=== PATIENT | male | born 1990 | race Caucasian/White ===

== ENCOUNTER → 2019-03-25 15:42 | Outpatient (BNVA) | payer OTHER, SELFPAY | PROVIDERS: PCP Emergency Medicine Emergency Medical Services; Referring Provider Emergency Medicine Emergency Medical Services; Visit Provider Specialist | DX: M79.641 Pain in right hand (principal) | CPT/HCPCS: 73130 ==

== ENCOUNTER 2019-04-14 05:58 | Day surgery (SDC) | payer OTHER, SELFPAY ==
[2019-04-13 18:26] VITALS: BMI 30.3
[2019-04-14 06:11] VITALS: BP 144/77; PULSE 82; RESP 18; TEMP 36.2; O2SAT 98
--- NOTE | 2019-04-14 06:25 | ANES.PREANE2 ---
Pre-Anesthetic Assessment Pre-Anesthetic Assessment: Height/Weight: Height 1.68 m Weight 85.275 kg Temp Pulse Resp BP Pulse Ox 97.2 F L 82 18 144/77 98 04/14/19 06:11 04/14/19 06:11 04/14/19 06:11 04/14/19 06:11 04/14/19 06:11 Preop Diagnosis: Right hand long and ring finger triggering Proposed Procedure: Operation Date: 04/14/19 07:00 Proposed Procedures p Trigger Finger Release [id number] M65.341(Right) - Haleigh Green MD Familial anesthetic complications: None Was Beta Hola taken within 24 hours: N/A Last intake: Intake Last Liquid Date 04/13/19 Last Liquid Time 22:00 Last Solid Date 04/13/19 Last Solid Time 22:00 Social: Social History: No alcohol and No tobacco Exam: Pre-Anes Outpt Exam: alert, oriented x 3, clear to auscultation bilaterally and regular rate & rhythm Airway: Cervical ROM: WNL MP: 2 Dentition: Full Pulmonary: Pulmonary: Sleep apnea (noncompliant with CPAP) CV/HEM: CV/HEM: None reported : : None reported Hepatic: Hepatic: None reported GI: GI: None reported Metabolic: Metabolic: None reported Musc/skel: Musc/skel: None reported Neuropsych: Neuropsych: None reported Anesthetic Plan: ASA status: II Anesthesia: General Risk of > 500 ml blood loss (7ml/kg in children): No PFSH Anesthesia PFSH: Social History Smoking and tobacco status: former smoker Alcohol intake: never Data Anesthesia Cardiac Studies: No Data to Display
[2019-04-14] MEDS: sodium chloride 0.9% 1,000 ML 30 ML IV (06:35)
--- NOTE | 2019-04-14 06:56 | PM.HPUD ---
H&P update H&P Update: DATE OF SURGERY/PROCEDURE: 04/14/19 DATE H&P PERFORMED: 03/25/19 H&P UPDATE INFORMATION: No changes to prior documentation and H&P is in [facility] EMR on date indicated PREOP DIAGNOSIS: Right long and ring finger triggering PLANNED PROCEDURE: Operation Date: 04/14/19 07:00 Proposed Procedures Trigger Finger Release long and ring fingers [id number] M65.341(Right) - Haleigh Green MD Full H&P Medications/Allergies: Current Medications: Current Medications Generic Name Dose Route Start Last Admin Trade Name Freq PRN Reason Stop Dose Admin Sodium Chloride 1,000 mls @ 30 ml s/hr 04/14/19 06:00 04/14/19 06:35 Sodium Chloride 0.9% IV 04/15/19 05:59 30 mls/hr .Q24H THOM Administration Perinent History: Family History: Family History (Updated 03/25/19 @ 15:56 by Vianney Mcneal LPN) Mother Cancer Social History: Social History Smoking and tobacco status: former smoker Alcohol intake: never
--- NOTE | 2019-04-14 07:59 | P.OP_ITS ---
Operative Report Date of procedure: April 14, 2019 Pre-op Diagnosis: Right long and ring finger triggering Post-op diagnosis: same Procedure Done: Release right ring long and trigger fingers Pathology: none sent Surgeon: Haleigh Green Anesthesia: MAC (With [place] block) Estimated blood loss (mL): 5 Tourniquet time (min): 38 IV fluids (mL): 400 Complications: None Disposition: same day Brief History: This 28-year-old gentleman presented to my office with complaints of triggering of the long and ring fingers of the right hand. He was having difficulties with his activities of daily living secondary to this triggering, and it was quite painful for him. After discussion, he elected to proceed with trigger finger release. Procedure: The patient was brought to the operating theater. He was placed on the operating room table. A Irene block with MAC was administered without difficulty. Patient tolerated it well. Ancef 2 g was administered. A tourniquet was placed high on the arm and was elevated for the Irene block. This followed exsanguination of the arm. Tourniquet time was 38 minutes. Surgical pause was performed prior to commencement of the surgical procedure. At the time of the surgical pause we identified the site and side of surgery. We also identified the patient's identity and appropriate administration of IV antibiotics. Following the surgical pause, an incision was made along the distal palmar crease beneath the long and ring fingers along the metacarpal phalangeal crease. Dissection continued through the skin to the subcutaneous tissues using a scalpel. Blunt dissection was then utilized to spread soft tissues and allow access to the A1 eddie. Each A1 eddie was identified. It was then incised longitudinally and sharply using a knife. This was accomplished without difficulty and atraumatically. Once the A1 pulleys were released, tendons were brought up out of the wound and evaluated. There were no gross masses on the tendons. Tendons were returned to normal position. We then irrigated the wound and subsequently closed it with 3-0 nylon with an interrupted mattress type suture. Following closure of the wound, the wound was injected with bupivacaine into the subcutaneous tissues as a local anesthetic. Sterile dressing was then placed consisting of TElfa, Tegaderm, fluffed fluffs sterile soft roll, and an Surjit wrap. The patient was returned to recovery in satisfactory condition. He will be discharged home to follow-up with me in the office. There were no complications and no specimens.
[2019-04-14 08:02] VITALS: BP 146/90; PULSE 76; RESP 16; TEMP 36.2; O2SAT 94
[2019-04-14 08:16] VITALS: BP 140/86; PULSE 74; RESP 18; O2SAT 96
== END 2019-04-14 08:30 | disposition home or self-care (01) ==
PROVIDERS: PCP Emergency Medicine Emergency Medical Services; Visit Provider Specialist
PROC: (CPT 26055; principal; 2019-04-14 07:00)
DX: M65.331 Trigger finger, right middle finger (principal); M65.341 Trigger finger, right ring finger; Z87.891 Personal history of nicotine dependence; G47.30 Sleep apnea, unspecified
CPT/HCPCS: 26055 ×2; 12345; J0690; J2001; J2704; J3010; J3490; J7030

== ENCOUNTER 2020-06-05 11:49 | Outpatient (CLI) | payer OTHER, SELFPAY ==
--- NOTE | 2020-06-05 12:19 | XRR_ITS ---
PROCEDURE INFORMATION: Exam: XR Left Scapula Exam date and time: 06/05/2020 12:19 PM Age: 29 years old Clinical indication: Injury or trauma; Fall; Blunt trauma (contusions or hematomas); Shoulder; Left; Injury details: Scapula; Additional info: Pain and trauma TECHNIQUE: Imaging protocol: XR Left scapula, complete. COMPARISON: No relevant prior studies available. FINDINGS: Bones/joints: Normal. Soft tissues: Normal. XR/[place] [id number] IMPRESSION: No acute findings.
--- NOTE | 2020-06-05 12:19 | XRR_ITS ---
PROCEDURE INFORMATION: Exam: XR Left Ribs Exam date and time: 06/05/2020 12:19 PM Age: 29 years old Clinical indication: Injury or trauma; Other: [employer] [place]; Rib area, left side; Blunt trauma; Additional info: Pain and trauma TECHNIQUE: Imaging protocol: XR Left ribs. Views: 2 views. COMPARISON: No relevant prior studies available. FINDINGS: Bones/joints: Normal. Soft tissues: Normal. XR/XR ribs LT 2V* [id number] IMPRESSION: No acute findings. No rib fractures are seen.
--- NOTE | 2020-06-05 12:19 | XRR_ITS ---
PROCEDURE INFORMATION: Exam: XR Cervical Spine Exam date and time: 06/05/2020 12:19 PM Age: 29 years old Clinical indication: Injury or trauma; Fall; Blunt trauma; Additional info: Pain and trauma TECHNIQUE: Imaging protocol: XR of the cervical spine. Views: 2 or 3 views. COMPARISON: No relevant prior studies available. FINDINGS: Bones/joints: Normal. No acute fracture. Normal alignment. Soft tissues: Unremarkable. XR/XR cervical spine 3V* [id number] IMPRESSION: No acute findings.
== END 2020-06-05 11:50 | disposition home or self-care (01) ==
LOC: RAD 11:51
PROVIDERS: PCP Emergency Medicine Emergency Medical Services; Visit Provider Nurse Practitioner
DX: M54.2 Cervicalgia (principal); M54.9 Dorsalgia, unspecified; M25.512 Pain in left shoulder; R07.81 Pleurodynia
CPT/HCPCS: 71100; 72040; 73010

== ENCOUNTER 2021-06-01 09:51 | Emergency (ER) | payer OTHER, SELFPAY ==
[2021-06-01 10:04] VITALS: BP 129/81; PULSE 82; RESP 18; TEMP 36.9; O2SAT 97; BMI 29.0
--- NOTE | 2021-06-01 10:19 | XR_ITS ---
WS: [id number] K[facility], AP view, 06/01/2021 Clinical Data: constipation Comparison: None. Findings: No abnormal intraabdominal masses or calcifications are seen. There is no dilatated small bowel or ev idence of obstruction. There is a large amount of fecal material throughout the colon. The bladder is partly full. XR/XR KUB portable [id number] Impression: Large amount of fecal material in the colon.
--- NOTE | 2021-06-01 11:05 | ED_ITS ---
HPI - General Adult General: Chief complaint: General Medical Stated complaint: ABD pain with Diarrhea Time Seen by Provider: 06/01/21 11:02 History of Present Illness: Patient presents with bowels not working like they usually do. He says normally has bowel movement daily. But since Saturday has been every other day. Has had diarrhea x1 had a low-grade fever 100.3 last night. Whole family was sick with stomach flu last week. Patient has no abdominal pain. Associated symptoms: Deny chest pain, dyspnea, headache(s), nausea, rash or vomiting Review of Systems Const: Denies: fever(s), chills or body aches Eyes: Denies: eye discomfort ENMT: Denies: throat pain Card: Denies: chest pain Resp: Denies: dyspnea GI: Reports: constipation and change in bowel habits; Denies: abdominal pain, nausea or vomiting Skin/Breast: Denies: rash Neuro: Denies: headache(s) Psych: Denies: depression or suicidal ideation PFS ED PFSH: Family History Mother Cancer Social History Smoking and tobacco status: former smoker Alcohol intake: never Physical Exam Const: COMMON NORMALS: no acute distress, patient oriented x3 and alert HENMT: COMMON NORMALS: normocephalic and external ears normal HEAD & SCALP: normocephalic EXTERNAL EAR: Yes external ears normal Eye: COMMON NORMALS: EOMs intact bilaterally Neck/C-Spine: COMMON NORMALS: no JVD Resp: COMMON NORMALS: normal respiratory effort and No use of accessory muscles Cardio: COMMON NORMALS: no JVD GI: INSPECTION: Yes normal to inspection Extremity: COMMON NORMALS: normal to inspection and full ROM Neuro: COMMON NORMALS: patient oriented x3 SENSORIUM/ORIENTATION: Yes alert Psych: COMMON NORMALS: mental status grossly normal Skin: COMMON NORMALS: no rashes or lesions noted GENERAL SKIN EXAM: no r ashes or lesions noted Course Vital Signs: Vital signs: Vital Signs Temperature 98.4 F 06/01/21 10:04 Pulse Rate 82 06/01/21 10:04 Respiratory Rate 18 06/01/21 10:04 Blood Pressure 129/81 06/01/21 10:04 Pulse Oximetry 97 06/01/21 10:04 MDM - General Adult Medical Decision Making Clinical exam and radiology study reveals constipation. CBC was normal. Lab Data : 06/01/21 11:20 Radiology Impressions KUB X-Ray 06/01/21 10:19 Impression: Large amount of fecal material in the colon. Laboratory Results WBC 4.6 10^3/uL (4.0-10.0) 06/01/21 11:20 RBC 4.52 10^6/uL (4.1-5.3) 06/01/21 11:20 Hgb 13.4 g/dL (11.7-16.6) 06/01/21 11:20 Hct 39.5 % (42.0-52.0) L 06/01/21 11:20 MCV 87.4 fl (80-94) 06/01/21 11:20 MCH 29.6 pg (28.0-34.0) 06/01/21 11:20 MCHC 33.9 g/dL (30.0-36.0) 06/01/21 11:20 RDW 12.3 % (12.1-15.1) 06/01/21 11:20 Plt Count 208 10^3/cmm (130-400) 06/01/21 11:20 MPV 10.9 fL (7.4-10.4) H 06/01/21 11:20 Neut % (Auto) 43.9 % 06/01/21 11:20 Lymph % (Auto) 43.4 % 06/01/21 11:20 [place] % (Auto) 9.1 % 06/01/21 11:20 Eos % (Auto) 3.0 % 06/01/21 11:20 Baso % (Auto) 0.4 % 06/01/21 11:20 Neut # (Auto) 2.03 10^3/uL (1.8-7.7) 06/01/21 11:20 Lymph # (Auto) 2.0 10^3/uL (0.8-4.8) 06/01/21 11:20 [place] # (Auto) 0.4 10^3/uL (0.2-0.9) 06/01/21 11:20 Eos # (Auto) 0.1 10^3/uL (0.0-0.8) 06/01/21 11:20 Baso # (Auto) 0.0 10^3/uL (0.0-0.1) 06/01/21 11:20 Nucleated RBC % (auto) 0 % 06/01/21 11:20 Nucleated RBCs # 0.0 /100WBC 06/01/21 11:20 Discharge Plan Discharge Patient Disposition: Home Clinical Impression: Constipated Condition: Stable Prescriptions: New magnesium citrate Solution 296 ml PO DAILY PRN (Reason: constipation) Qty: 296 0RF No Action naproxen 375 mg tablet 375 mg PO BID 7 Days Qty: 14 0RF baclofen 5 mg tablet 5 mg PO BID PRN (Reason: pain) Qty: 10 0RF doxepin 25 mg capsule 25 mg PO BID 0RF prazosin 5 mg capsule 5 mg PO ONCE 0RF duloxetine [Cymbalta] 60 mg capsule,delayed release(DR/EC) 60 mg PO DAILY 0RF bupropion HCl 300 mg tablet extended release 24 hr 300 mg PO QAM 0RF cholecalciferol (vitamin D3) 1,000 unit capsule 1,000 unit PO ONCE 0RF Discharge Orders: Discharge ED (Routine); Ordered 06/01/21 Ordered By: Jasbir Hernandez Referrals: Billy Albrecht DO [Primary Care Provider] - Discharge Diet: As Directed Discharge Activity: Resume usual activity Patient Instructions: Constipation (ED) Activity Restrictions/Additional Instructions: Follow-up with medical provider as directed. Take medications as prescribed. Return to the ER or your medical provider if condition worsens. Please read and understand discharge instructions. If any questions ask please. Increase fluid, fiber and vegetables in diet. Coding Level of Care Code ED Operations Scheduler for Chg Fwd Exam Comprehensive
[2021-06-01 11:34] LABS: Basophils % 0.4 %; Eosinophils # 0.1 10^3/uL (0.0-0.8); Hematocrit 39.5 % (42.0-52.0); Hemoglobin 13.4 g/dL (11.7-16.6); Lymphocytes % 43.4 %; Mean Corpuscular HGB Conc 33.9 g/dL (30.0-36.0); Mean Corpuscular Hemoglobin 29.6 pg (28.0-34.0); Mean Corpuscular Volume 87.4 fl (80-94); Mean Platelet Volume 10.9 fL (7.4-10.4); Monocytes # 0.4 10^3/uL (0.2-0.9); Monocytes % 9.1 %; Neutrophils # 2.03 10^3/uL (1.8-7.7); Neutrophils % 43.9 %; Nucleated Red Blood Cells % 0 %; Platelet Count 208 10^3/cmm (130-400); Red Blood Count 4.52 10^6/uL (4.1-5.3); Red Cell Distribution Width 12.3 % (12.1-15.1); White Blood Count 4.6 10^3/uL (4.0-10.0)
[2021-06-01 11:44] VITALS: BP 119/76; PULSE 71; RESP 14; TEMP 36.4; O2SAT 98
[2021-06-01 11:46] VITALS: BP 119/76; PULSE 71; RESP 14; TEMP 36.4; O2SAT 98
== END 2021-06-01 11:45 | disposition home or self-care (01) ==
PROVIDERS: Emergency Provider Nurse Practitioner Family; PCP Emergency Medicine Emergency Medical Services
DX: K59.00 Constipation, unspecified (principal)
CPT/HCPCS: 74018; 85025; 99282

== ENCOUNTER → 2021-09-21 11:13 | Outpatient (BNVA) | payer SELFPAY | PROVIDERS: PCP Emergency Medicine Emergency Medical Services; Visit Provider Family Medicine | DX: B34.9 Viral infection, unspecified (principal); J12.9 Viral pneumonia, unspecified; R05.9 Cough, unspecified; R50.9 Fever, unspecified | CPT/HCPCS: 71046; 87635 ==

== ENCOUNTER 2022-06-05 11:49 | Emergency (ER) | payer OTHER, SELFPAY ==
[2022-06-05 12:12] VITALS: BP 102/69; PULSE 128; RESP 18; TEMP 36.8; O2SAT 98; BMI 32.3
[2022-06-05 12:22] VITALS: O2SAT 98
[2022-06-05 14:07] LABS: Basophils % 0.2 %; Eosinophils % 0.5 %; Hemoglobin 16.3 g/dL (11.7-16.6); Lymphocytes # 0.5 10^3/uL (0.8-4.8); Lymphocytes % 5.3 %; Mean Corpuscular Hemoglobin 29.4 pg (28.0-34.0); Mean Corpuscular Volume 86.6 fl (80-94); Mean Platelet Volume 10.3 fL (7.4-10.4); Monocytes # 0.5 10^3/uL (0.2-0.9); Monocytes % 5.8 %; Neutrophils % 87.9 %; Nucleated Red Blood Cells % 0 %; Platelet Count 187 10^3/cmm (130-400); Red Blood Count 5.54 10^6/uL (4.1-5.3); Red Cell Distribution Width 12.2 % (12.1-15.1); White Blood Count 8.8 10^3/uL (4.0-10.0)
[2022-06-05 14:28] LABS: Alanine Aminotransferase 23 U/L (0-41); Albumin Level 4.6 g/dL (3.5-5.2); Alkaline Phosphatase 66 U/L (40-130); Anion Gap 18.5 (5-19); Aspartate Amino Transferase 20 U/L (0-40); Blood Urea Nitrogen 17 mg/dL (6-20); Calcium 9.4 mg/dL (8.5-10.5); Carbon Dioxide 23 mmol/L (22-29); Chloride 95 mmol/L (98-107); Globulin 3.6 g/dL (1.3-4.6); Glomerular Filtration Rate 111.3 mL/min (90-130); Glucose 101 mg/dL (65-115); Lipase 17 U/L (13-60); Osmolality Calculated 276 mOsm/kg (285-295); Potassium 4.5 mmol/L (3.5-5.1); Sodium 132 mmol/L (136-145); Total Bilirubin 0.6 mg/dL (0.15-1.2); Total Protein 8.2 g/dL (6.6-8.7)
--- NOTE | 2022-06-05 14:41 | W.ED.NAVMDI ---
HPI - Nausea/Vomiting/Diarrhea General: Chief complaint: COVID symptoms Stated complaint: n/v/d/ body chills Time Seen by Provider: 06/05/22 14:17 Source: patient Mode of arrival: ambulatory Limitations: no limitations History of Present Illness: Patient is a 31-year-old male presents to ED today with complaint of nausea, vomiting, diarrhea starting at midnight. He denies any poor food exposures. Denies sick contacts. He does report some body aches without fevers. Patient states he had nausea, vomiting, diarrhea last time he had COVID and wants checked for this. No blood in his emesis or stool. Urinary complaints. Denies lightheadedness/dizziness. He is not having any abdominal pain. He has had 3-4 total episodes of vomiting throughout the night. Has not had any further episodes today. States he is holding down fluids fine. MD elicited complaint: nausea, vomiting and diarrhea Onset (ago): hour(s) Description of vomiting: watery Description of diarrhea: watery Associated nausea: Yes Associated abdominal pain: No Location of pain: None Severity: mild Relieving factors: none Associated symtoms: Reports nausea; Denies chest pain, dizziness, dysuria, fatigue, headache(s), malaise, palpitations or syncope Review of Systems Const: Reports: body aches; Denies: fever(s), chills, fatigue or malaise ENMT: Denies: throat pain, odynophagia, nasal discharge, nasal congestion or sinus pain Card: Denies: chest pain, palpitations, irregular heart rhythm, lightheadedness, syncope or pre-syncope Resp: Denies: dyspnea GI: Reports: nausea, vomiting and diarrhea; Denies: abdominal pain, hematemesis, hematochezia or melena : Denies: flank pain, dysuria or hematuria Musc: Denies: neck pain, back pain, extremity pain or joint pain Skin/Breast: Denies: rash Neuro: Denies: headache(s) or dizziness PFS ED PFSH: Family History Mother Cancer Social History Smoking and tobacco status: never smoked Alcohol intake: never Physical Exam Const: COMMON NORMALS: no acute distress, average body habitus, patient oriented x3, no limitations, healthy appearing, alert and well nourished GENERAL APPEARANCE: cooperative ORIENTATION/CONSCIOUSNESS: Yes awake, Yes oriented to person, Yes oriented to place and Yes oriented to time Eye: COMMON NORMALS: no scleral icterus Resp: COMMON NORMALS: normal respiratory effort and clear to auscultation bilaterally AUSCULTATION: clear to auscultation bilaterally Cardio: COMMON NORMALS: regular rhythm RATE: tachycardic RHYTHM: regular rhythm GI: COMMON NORMALS: Normal to inspection, nondistended, normoactive bowel sounds present, Soft to palpation, non-tender, No hepatosplenomegaly present and no masses PALPATION: Yes Soft to palpation and Yes No hepatosplenomegaly present Neuro: COMMON NORMALS: patient oriented x3 SENSORIUM/ORIENTATION: Yes alert, Yes oriented to person, Yes oriented to place and Yes oriented to time Course Vital Signs: Vital signs: Vital Signs Temperature 98.3 F 06/05/22 12:12 Pulse Rate 119 H 06/05/22 14:52 Respiratory Rate 16 06/05/22 14:52 Blood Pressure 116/72 06/05/22 14:52 Pulse Oximetry 96 06/05/22 14:52 Oxygen Delivery Me thod 06/05/22 14:52 MDM - Nausea/Vomiting/Diarrhea Medical Decision Making Patient here for N/V/D starting at midnight. Vomiting already sounds like it is improving. He states he is able to hold down fluids well. He has no abdominal pain. Blood work is unremarkable. 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 PCR obtained and pending. Vital signs are stable apart from some tachycardia which I think is secondary to volume loss/dehydration. Again he is able to hold down oral hydration so recommend he continue this as studies show it is just as effective as IV. Return to ED precautions given. Lab Data 06/05/22 13:55 06/05/22 13:55 Laboratory Results WBC 8.8 10^3/uL (4.0-10.0) 06/05/22 13:55 RBC 5.54 10^6/uL (4.1-5.3) H 06/05/22 13:55 Hgb 16.3 g/dL (11.7-16.6) 06/05/22 13:55 Hct 48.0 % (42.0-52.0) 06/05/22 13:55 MCV 86.6 fl (80-94) 06/05/22 13:55 MCH 29.4 pg (28.0-34.0) 06/05/22 13:55 MCHC 34.0 g/dL (30.0-36.0) 06/05/22 13:55 RDW 12.2 % (12.1-15.1) 06/05/22 13:55 Plt Count 187 10^3/cmm (130-400) 06/05/22 13:55 MPV 10.3 fL (7.4-10.4) 06/05/22 13:55 Neut % (Auto) 87.9 % 06/05/22 13:55 Lymph % (Auto) 5.3 % 06/05/22 13:55 [place] % (Auto) 5.8 % 06/05/22 13:55 Eos % (Auto) 0.5 % 06/05/22 13:55 Baso % (Auto) 0.2 % 06/05/22 13:55 Neut # (Auto) 7.70 10^3/uL (1.8-7.7) 06/05/22 13:55 Lymph # (Auto) 0.5 10^3/uL (0.8-4.8) L 06/05/22 13:55 [place] # (Auto) 0.5 10^3/uL (0.2-0.9) 06/05/22 13:55 Eos # (Auto) 0.0 10^3/uL (0.0-0.8) 06/05/22 13:55 Baso # (Auto) 0.0 10^3/uL (0.0-0.1) 06/05/22 13:55 Nucleated RBC % (auto) 0 % 06/05/22 13:55 Nucleated RBCs # 0.0 /100WBC 06/05/22 13:55 Sodium 132 mmol/L (136-145) L 06/05/22 13:55 Potassium 4.5 mmol/L (3.5-5.1) 06/05/22 13:55 Chloride 95 mmol/L (98-107) L 06/05/22 13:55 Carbon Dioxide 23 mmol/L (22-29) 06/05/22 13:55 Anion Gap 18.5 (5-19) 06/05/22 13:55 BUN 17 mg/dL (6-20) 06/05/22 13:55 Creatinine 0.8 mg/dL (0.7-1.2) 06/05/22 13:55 GFR Calculation 111.3 mL/min (90-130) 06/05/22 13:55 Glucose 101 mg/dL (65-115) 06/05/22 13:55 Calculated Osmolality 276 mOsm/kg (285-295) L 06/05/22 13:55 Calcium 9.4 mg/dL (8.5-10.5) 06/05/22 13:55 Total Bilirubin 0.6 mg/dL (0.15-1.2) 06/05/22 13:55 AST 20 U/L (0-40) 06/05/22 13:55 ALT 23 U/L (0-41) 06/05/22 13:55 Alkaline Phosphatase 66 U/L (40-130) 06/05/22 13:55 Total Protein 8.2 g/dL (6.6-8.7) 06/05/22 13:55 Albumin 4.6 g/dL (3.5-5.2) 06/05/22 13:55 Globulin 3.6 g/dL (1.3-4.6) 06/05/22 13:55 Lipase 17 U/L (13-60) 06/05/22 13:55 Discharge Plan Discharge Patient Disposition: Home Clinical Impression: Gastroenteritis Condition: Stable Prescriptions: New ondansetron 4 mg tablet,disintegrating 4 mg PO Q8H PRN (Reason: nausea and vomiting) Qty: 14 0RF No Action doxepin 25 mg capsule 25 mg PO BID prazosin 5 mg capsule 5 mg PO ONCE duloxetine [Cymbalta] 60 mg capsule,delayed release(DR/EC) 60 mg PO DAILY bupropion HCl 300 mg tablet extended release 24 hr 300 mg PO QAM cholecalciferol (vitamin D3) 1,000 unit capsule 1,000 unit PO ONCE prednisone 20 mg tablet 40 mg PO DAILY 5 Days Qty: 10 0RF albuterol sulfate 90 mcg/actuation HFA aerosol inhaler 1 inh inhalation QID PRN (Reason: shortness of breath or wheezing) Qty: 8.5 0RF magnesium citrate Solution 296 ml PO DAILY PRN (Reason: constipation) Qty: 296 0RF Discharge Orders: Discharge ED (Routine); Ordered 06/05/22 Ordered By: Alisa Vidal Referrals: Billy Albrecht DO [Primary Care Provider] - Patient Instructions: Gastroenteritis (DC), Acute Nausea and Vomiting (DC) Coding Level of Care Code ED 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
[2022-06-05 14:52] VITALS: BP 116/72; PULSE 119; RESP 16; O2SAT 96
[2022-06-05 16:46] LABS: Adenovirus Not Detected (NOT DETECT); Chlamydia Pneumoniae Not Detected (NOT DETECT); Coronavirus 229E,HKU1,NL63,OC4 Not Detected (NOT DETECT); Human Metapneumovirus Not Detected (NOT DETECT); Human Rhinovirus/Enterovirus Not Detected (NOT DETECT); Influenza A Not Detected (NOT DETECT); Influenza A H1 Not Detected (NOT DETECT); Influenza A H1-2009 Not Detected (NOT DETECT); Influenza A H3 Not Detected (NOT DETECT); Influenza B Not Detected (NOT DETECT); Mycoplasma Pneumoniae Not Detected (NOT DETECT); Parainfluenza Virus Type 1 Not Detected (NOT DETECT); Parainfluenza Virus Type 2 Not Detected (NOT DETECT); Parainfluenza Virus Type 3 Not Detected (NOT DETECT); Parainfluenza Virus Type 4 Not Detected (NOT DETECT); Respiratory Syncytial Virus A Not Detected (NOT DETECT); Respiratory Syncytial Virus B Not Detected (NOT DETECT); SARS-COV-2 Not Detected (NOT DETECT)
== END 2022-06-05 15:13 | disposition home or self-care (01) ==
PROVIDERS: Emergency Provider Physician Assistant; PCP Emergency Medicine Emergency Medical Services
DX: K52.9 Noninfective gastroenteritis and colitis, unspecified (principal); Z20.822 Contact with and (suspected) exposure to COVID-19
CPT/HCPCS: 36415; 80053; 83690; 85025; 87635; 99283

== ENCOUNTER 2022-12-25 12:10 | Emergency (ER) | payer OTHER, SELFPAY ==
[2022-12-25 12:11] VITALS: BP 139/91; PULSE 97; RESP 17; TEMP 37.1; O2SAT 98; BMI 30.7
--- NOTE | 2022-12-25 12:22 | W.ED.ABDPA2 ---
HPI - Abdominal Pain General: Chief Complaint: Abdominal Pain Stated Complaint: abd pain Time Seen by Provider: 12/25/22 12:18 Source: patient Mode of arrival: ambulatory History of Present Illness: 32-year-old male presents emergency room with supraumbilical abdominal discomfort. Constant in nature. Began yesterday has persisted. States the only thing that relieves it if he kneels down on his knees and bends over and puts pressure on his abdomen. He denies any hematochezia melena hematemesis cough cramps no dysuria urgency or frequency. No vomiting no diarrhea no constipation. He did try some Tums for last night which really did not seem to make much difference. He has mild discomfort now. MD elicited complaint: abdominal pain Pertinent past history: none Onset (ago): day(s) (1) Associated Symptoms: Denies chills, dysuria, fever(s), nausea and vomiting Review of Systems Const: Denies: fever(s) or chills Card: Denies: chest pain Resp: Denies: dyspnea GI: Reports: abdominal pain; Denies: nausea or vomiting : Denies: flank pain, dysuria, urinary frequency or urinary urgency Musc: Denies: neck pain or back pain Skin/Breast: Denies: rash PFSH ED PFSH: Family History Mother Cancer Social History Smoking and tobacco/nicotine status: never used tobacco/nicotine Alcohol intake: never Substance/Drug Use: never Physical Exam Const: GENERAL APPEARANCE: cooperative and comfortable ORIENTATION/CONSCIOUSNESS: Yes awake, Yes oriented to person, Yes oriented to place and Yes oriented to time HENMT: COMMON NORMALS: normocephalic, atraumatic and hearing grossly normal bilaterally HEAD & SCALP: normocephalic and atraumatic Resp: COMMON NORMALS: normal respiratory effort, No retractions, No use of accessory muscles and clear to auscultation bilaterally AUSCULTATION: clear to auscultation bilaterally Cardio: COMMON NORMALS: regular rate, regular rhythm and No murmurs present (Cardio) RATE: regular rate RHYTHM: regular rhythm GI: COMMON NORMALS: Soft to palpation and No hepatosplenomegaly present AUSCULTATION: Yes normoactive bowel sounds PALPATION: Yes Soft to palpation, No Tenderness to palpation present (GI), No Guarding due to palpation present (GI) and Yes No hepatosplenomegaly present Extremity: COMMON NORMALS: normal to inspection, capillary refill normal, no clubbing, cyanosis or edema, no calf tenderness and no pedal edema Neuro: SENSORIUM/ORIENTATION: Yes oriented to person, Yes oriented to place and Yes oriented to time Skin: COMMON NORMALS: no rashes or lesions noted GENERAL SKIN EXAM: no rashes or lesions noted Course Vital Signs: Vital signs: Vital Signs Temperature 98.7 F 12/25/22 12:11 Pulse Rate 102 H 12/25/22 14:15 Respiratory Rate 17 12/25/22 12:11 Blood Pressure 117/77 12/25/22 14:15 Pulse Oximetry 96 12/25/22 14:15 Oxygen Delivery Me thod Room Air 12/25/22 14:15 MDM - Abdominal Pain Medical Decision Making Labs and imaging reviewed. EKG she has no acute changes. Despite having had this for any superior time troponin is still normal. No acute findings on abdominal exam laboratory tests unremarkable. Improvement with GI cocktail. Discharge patient home started on pantoprazole 40 daily and follow-up with primary care return if has further problems. Medical Records I reviewed the patient's medical records. Lab Data I reviewed the patient's lab results. 12/25/22 12:27 12/25/22 12:27 Labs/Radiology: Laboratory Results WBC 6.32 10^3/uL (3.29-11.43) 12/25/22 12: RBC 5.08 10^6/uL (3.85-5.65) 12/25/22 12:27 Hgb 15.50 g/dL (11.27-16.99) 12/25/22 12:27 Hct 46.7 % (37-53) 12/25/22 12: MCV 91.9 fl (82-101) 12/25/22 12: MCH 30.5 pg (27-33) 12/25/22 12: MCHC 33.2 g/dL (30-55) 12/25/22 12: RDW 12.0 % (12.1-15.1) L 12/25/22 12:27 Plt Count 241 10^3/cmm (157-399) 12/25/22 12: MPV 10.0 fL (7.4-10.4) 12/25/22 12: Neut % (Auto) 54.3 % 12/25/22 12: Lymph % (Auto) 37.0 % 12/25/22 12: [place] % (Auto) 6.8 % 12/25/22 12: Eos % (Auto) 1.1 % 12/25/22 12: Baso % (Auto) 0.6 % 12/25/22 12: Neut # (Auto) 3.43 10^3/uL (1.8-7.7) 12/25/22 12: Lymph # (Auto) 2.3 10^3/uL (0.8-4.8) 12/25/22 12: [place] # (Auto) 0.4 10^3/uL (0.2-0.9) 12/25/22 12: Eos # (Auto) 0.1 10^3/uL (0.0-0.8) 12/25/22 12: Baso # (Auto) 0.0 10^3/uL (0.0-0.1) 12/25/22 12: Nucleated RBC % (auto) 0 % 12/25/22 12: Nucleated RBCs # 0.0 /100WBC 12/25/22 12:27 Sodium 137 mmol/L (136-145) 12/25/22 12:27 Potassium 4.3 mmol/L (3.5-5.1) 12/25/22 12: Chloride 100 mmol/L (98-107) 12/25/22 12:27 Carbon Dioxide 24 mmol/L (22-29) 12/25/22 12:27 Anion Gap 17.3 (5-19) 12/25/22 12:27 BUN 12 mg/dL (6-20) 12/25/22 12:27 Creatinine 0.9 mg/dL (0.7-1.2) 12/25/22 12:27 GFR Calculation 96.6 mL/min (90-130) 12/25/22 12:27 Glucose 92 mg/dL (65-115) 12/25/22 12:27 Calculated Osmolality 283 mOsm/kg (285-295) L 12/25/22 12:27 Calcium 9.7 mg/dL (8.5-10.5) 12/25/22 12:27 Total Bilirubin 0.2 mg/dL (0.15-1.2) 12/25/22 12:27 AST 27 U/L (0-40) 12/25/22 12:27 ALT 31 U/L (0-41) 12/25/22 12:27 Alkaline Phosphatase 72 U/L (40-130) 12/25/22 12:27 Troponin T Baseline < 6 ng/L (0-15) 12/25/22 12:27 Troponin T 120 Minute 6.0 ng/L (0-15) 12/25/22 14:22 Delta Troponin T 0.97327 ABS# (0-10) 12/25/22 14:22 Total Protein 8.1 g/dL (6.6-8.7) 12/25/22 12:27 Albumin 4.9 g/dL (3.5-5.2) 12/25/22 12:27 Globulin 3.2 g/dL (1.3-4.6) 12/25/22 12:27 Lipase 33 U/L (13-60) 12/25/22 12:27 Urine Color Yellow (Yellow) 12/25/22 12:41 Urine Appearance Clear (CLEAR) 12/25/22 12:41 Urine pH 5 (5-7) 12/25/22 12:41 Ur Specific [place] 1.020 (1.005-1.030) 12/25/22 12:41 Urine Protein Neg (Negative) 12/25/22 12:41 Urine Glucose (UA) Norm (Normal) 12/25/22 12:41 Urine Ketones Negative (Negative) 12/25/22 12:41 Urine Blood Neg (Negative) 12/25/22 12:41 Urine Nitrate Negative (Negative) 12/25/22 12:41 Urine Bilirubin Neg (Negative) 12/25/22 12:41 Urine Urobilinogen Norm mg/dL (Negative) 12/25/22 12:41 Ur Leukocyte Esterase Negative (Negative) 12/25/22 12:41 No radiology studies performed this visit Discharge Plan Discharge Patient Disposition: Home Clinical Impression: Abdominal pain, GERD (gastroesophageal reflux disease) Condition: Stable Prescriptions: New Protonix 40 mg tablet,delayed release (DR/EC) 40 mg PO DAILY 28 Days Qty: 30 0RF No Action prazosin 5 mg capsule 5 mg PO QPM duloxetine [Cymbalta] 60 mg capsule,delayed release(DR/EC) 60 mg PO QPM bupropion HCl 300 mg tablet extended release 24 hr 300 mg PO QPM cholecalciferol (vitamin D3) 1,000 unit capsule 1,000 unit PO QAM doxepin 50 mg Capsule 50 mg PO QPM rosuvastatin 20 mg Tablet 20 mg PO QPM omega 5-kph-avn-fish oil 300-1,000 mg Capsule,Delayed Release(Dr/Ec) 4 cap PO QPM Discharge Orders: Discharge ED (Routine); Ordered 12/25/22 Ordered By: Pro Rico Referrals: Billy Albrecht, [Primary Care Provider] - Patient Instructions: GERD (Gastroesophageal Reflux Disease) (ED), Abdominal Pain (ED), Opioid Safety, Pain Management Coding Level of Care Code ED [employer] for Jonny Swartz
[2022-12-25 12:36] LABS: Basophils % 0.6 %; Eosinophils # 0.1 10^3/uL (0.0-0.8); Eosinophils % 1.1 %; Hematocrit 46.7 % (37-53); Lymphocytes # 2.3 10^3/uL (0.8-4.8); Mean Corpuscular HGB Conc 33.2 g/dL (30-55); Mean Corpuscular Hemoglobin 30.5 pg (27-33); Mean Corpuscular Volume 91.9 fl (82-101); Monocytes # 0.4 10^3/uL (0.2-0.9); Monocytes % 6.8 %; Neutrophils # 3.43 10^3/uL (1.8-7.7); Neutrophils % 54.3 %; Nucleated Red Blood Cells % 0 %; Platelet Count 241 10^3/cmm (157-399); Red Blood Count 5.08 10^6/uL (3.85-5.65); White Blood Count 6.32 10^3/uL (3.29-11.43)
[2022-12-25] MEDS: lidocaine 2% viscous 15 ML, aluminum-mag hydrox-simethicon 30 ML, sucralfate oral liq 1 GM PO (12:38)
[2022-12-25 12:50] LABS: Add Urine Microscopic? NO; Charge for UA Resulting for Rev
[2022-12-25 12:54] LABS: Bilirubin Urine Neg (Negative); Blood Urine Neg (Negative); Glucose Urine UA Norm (Normal); Ketones Urine Negative (Negative); Leukocyte Esterase Urine Negative (Negative); Nitrate Urine Negative (Negative); Protein Urine Neg (Negative); Urine Appearance Clear (CLEAR); Urine Color Yellow (Yellow); Urobilinogen Urine Norm (Negative); pH Urine 5 (5-7)
[2022-12-25 13:05] LABS: Alanine Aminotransferase 31 U/L (0-41); Albumin Level 4.9 g/dL (3.5-5.2); Alkaline Phosphatase 72 U/L (40-130); Blood Urea Nitrogen 12 mg/dL (6-20); Calcium 9.7 mg/dL (8.5-10.5); Carbon Dioxide 24 mmol/L (22-29); Chloride 100 mmol/L (98-107); Globulin 3.2 g/dL (1.3-4.6); Glomerular Filtration Rate 96.6 mL/min (90-130); Glucose 92 mg/dL (65-115); Lipase 33 U/L (13-60); Osmolality Calculated 283 mOsm/kg (285-295); Sodium 137 mmol/L (136-145); Total Bilirubin 0.2 mg/dL (0.15-1.2); Total Protein 8.1 g/dL (6.6-8.7)
[2022-12-25 13:10] LABS: Anion Gap 17.3 (5-19); Aspartate Amino Transferase 27 U/L (0-40); Potassium 4.3 mmol/L (3.5-5.1)
--- NOTE | 2022-12-25 13:15 | ECG_ITS ---
[facility] Test Date: 2022-12-25 Pat Name: Senthil Olivo Department: Room: Gender: Male Director Of Hospitality: : 1990 Requested By: Pro Franks Order Number: [id number] Luis MD: Seema Caldera M.D. Measurements Intervals [place] Rate: 88 P: 35 SC: 162 QRS: 24 QRSD: 97 T: 32 QT: 333 QTc: 404 Interpretive Statements SINUS RHYTHM No previous ECG available for comparison Electronically Signed On 12-25-2022 15:23:41 CDT by Seema Caldera M.D. [id number]
[2022-12-25 13:24] VITALS: BP 136/75; PULSE 94; O2SAT 95
[2022-12-25 14:15] VITALS: BP 117/77; PULSE 102; O2SAT 96
[2022-12-25 14:24] LABS: Troponin(5th) Baseline < 6 ng/L (0-15)
[2022-12-25 14:57] LABS: Troponin 5 2HR Delta 0.00001 ABS# (0-10)
== END 2022-12-25 15:08 | disposition home or self-care (01) ==
PROVIDERS: Emergency Provider Family Medicine; PCP Emergency Medicine Emergency Medical Services
DX: K21.9 Gastro-esophageal reflux disease without esophagitis (principal); R10.33 Periumbilical pain
CPT/HCPCS: 36415; 80053; 81003; 83690; 84484; 85025; 93005; 99284

== ENCOUNTER → 2023-08-22 06:55 | Outpatient (BNVA) | payer OTHER, SELFPAY | PROVIDERS: PCP Emergency Medicine Emergency Medical Services; Visit Provider Student in an Organized Health Care Education/Training Program | DX: M20.012 Mallet finger of left finger(s) | CPT/HCPCS: 73130; 99203 ==

== ENCOUNTER 2024-11-12 09:47 | Outpatient (CLI) | payer OTHER, SELFPAY ==
--- NOTE | 2024-11-12 09:53 | MM_ITS ---
WS: [id number] BILATERAL 3D TOMOSYNTHESIS DIGITAL DIAGNOSTIC MAMMOGRAPHY WITH CAD CLINICAL INFORMATION: GYNECOMASTIA HISTORY: Enlarged breast. LEFT greater than RIGHT. COMPARISON: None. TECHNIQUE: Bilateral CC, MLO, and ML views. FINDINGS: Scattered fibroglandular densities bilaterally. Subareolar parenchymal tissue more prominent on the LEFT suspicious for gynecomastia. Ultrasound is pending. ULTRASOUND BREAST BILATERAL TECHNIQUE: Ultrasound bilateral breast focused area of concern. CLINICAL INFORMATION: GYNECOMASTIA FINDINGS: Shadowing subareolar parenchymal tissue LEFT greater than RIGHT compatible with gynecomastia. No suspicious cystic or solid nodules. No suspicious lesions to target for biopsy. No other suspicious findings. MM/MM diag BI tomosynthesis [id number] IMPRESSION: DENSITY: There are scattered areas of fibroglandular density. BI-RADS: 2 - Benign. FOLLOW UP: See Report
== END 2024-11-12 09:48 | disposition home or self-care (01) ==
LOC: RAD 09:48
PROVIDERS: PCP Family Medicine Geriatric Medicine; Visit Provider Family Medicine Geriatric Medicine
DX: N62 Hypertrophy of breast (principal); R92.323 Mammographic fibroglandular density, bilateral breasts
CPT/HCPCS: 76642; 77062; G0279

== ENCOUNTER 2024-12-09 08:49 | Outpatient (CLI) | payer OTHER, SELFPAY ==
--- NOTE | 2024-12-09 08:54 | US_ITS ---
WS: [id number] ABDOMINAL ULTRASOUND LIMITED REASON FOR VISIT: ELEVATED LFT'S TECHNIQUE: Grayscale and Doppler ultrasound examination of the abdomen. FINDINGS: Pancreas: No mass or ductal dilatation. No calcification. Abdominal aorta and IVC: No mass, ductal dilatation, or calcification. Normal Liver: Liver measures 12.4 cm in length. Normal echotexture with no focal lesion. Normal portal venous blood flow. Gallbladder: Gallbladder wall thickness measures 0.2 mm. Reflective mild and mild sludge with no cholelithiasis. Right kidney: Right kidney measures 10.0 cm x 5.1 cm x 4.3 cm. Right kidney cortex measures 1.1 cm. No mass, hydronephrosis, or calculus. No ascites. US/US abdomen limited [id number] IMPRESSION: No significant abnormality.
== END 2024-12-09 08:50 | disposition home or self-care (01) ==
LOC: RAD 08:50
PROVIDERS: PCP Family Medicine Geriatric Medicine; Visit Provider Family Medicine Geriatric Medicine
DX: Z01.89 Encounter for other specified special examinations (principal); R74.01 Elevation of levels of liver transaminase levels
CPT/HCPCS: 76705